=== PATIENT | female | born 1940 | race Caucasian/White ===

== ENCOUNTER 2020-03-27 10:21 | Emergency (ER) | payer OTHER, BC | END 2020-03-27 10:43 | disposition home or self-care (01) | LOC: JVIRT 10:21 | DX: R05 Cough (principal); R53.83 Other fatigue; Z11.59 Encounter for screening for other viral diseases | CPT/HCPCS: C9803; Q3014-GT; U0003 ==

== ENCOUNTER 2020-04-28 17:01 | Emergency (ER) | payer OTHER, BC | END 2020-04-28 18:29 | disposition home or self-care (01) | LOC: JVIRT 17:01 | DX: Z03.818 Encounter for observation for suspected exposure to other biological agents ruled out (principal) | CPT/HCPCS: C9803; G2012-GT; Q3014-GT; U0003 ==